=== PATIENT | female | born 1985 | race Two or more races ===

== ENCOUNTER 2023-08-14 11:09 | Emergency (ER) | payer OTHER ==
[~2023-08-14] VITALS: Ht 162.6 cm; Wt 81.2 kg
[2023-08-14 11:50] LABS: BASOPHILS % (AUTO) 0.9 % (0.0-2.0); EOSINOPHILS # (AUTO) 0.1 K/uL (0.0-0.7); EOSINOPHILS % (AUTO) 1.7 % (0.0-6.0); HEMATOCRIT 27 % (33-45); HEMOGLOBIN 8.1 g/dL (11.5-14.8); LYMPHOCYTES # (AUTO) 2.1 K/uL (0.8-4.8); LYMPHOCYTES % (AUTO) 46.6 % (20.0-44.0); MEAN CORPUSCULAR HEMOGLOBIN 21 PG (26.0-33.0); MEAN CORPUSCULAR HGB CONC 30 g/dl (31.0-36.0); MEAN CORPUSCULAR VOLUME 69 fL (82-100); MONOCYTES # (AUTO) 0.3 K/uL (0.1-1.30); MONOCYTES % (AUTO) 6.3 % (2.0-12.0); NEUTROPHILS % (AUTO) 44.5 % (43.0-81.0); PLATELET COUNT (AUTO) 280 K/uL (150-450); RED BLOOD CELL COUNT(AUTO) 3.89 MIL/uL (4.0-5.2); RED CELL DISTRIBUTION WIDTH 17.9 % (11.5-15.0); WHITE BLOOD COUNT (AUTO) 4.5 K/uL (4.3-11.0)
[2023-08-14 12:03] LABS: POTASSIUM 3.5 mmol/L (3.5-5.1)
[2023-08-14 12:12] LABS: CALCIUM, SERUM 5.5 mg/dL (8.5-10.1)
[2023-08-14] MEDS: Calcium Gluconate 1GM/10ML 4.65 MEQ in IV NS 0.9% 100 ML IV ONE ×2 (12:46→13:56)
[2023-08-14] MEDS ORDERED: HYDROCODONE/APAP 5/325MG TABLET ONE (13:09)
[2023-08-14] MEDS: HYDROCODONE/APAP 5/325MG TABLET PO ONE (13:10)
[2023-08-14] MEDS ORDERED: CHOL200026 PO (13:31)
[2023-08-14] MEDS ORDERED: CALC0.5C11 PO (13:31)
[2023-08-14] MEDS ORDERED: CALCIUM IV (13:31)
[2023-08-14] MEDS ORDERED: SERT50TA PO (13:31)
[2023-08-14] MEDS ORDERED: LEVOTHYROXINE SODIUM IV (13:31)
[2023-08-14] MEDS ORDERED: HYDROMORPHONE 1 MG/1 ML DISP.SYRIN ONE (13:48)
[2023-08-14] MEDS ORDERED: HYDR-3972 PO (13:53)
[2023-08-14] MEDS: HYDROMORPHONE MDV 0.5 MG in IV D5W 50 ML IV PRN (13:56)
[2023-08-14] MEDS ORDERED: Calcium Gluconate 0.465 MEQ/ML VIAL IV ONE (14:00)
[2023-08-14 15:01] VITALS: BP 128/99; TEMP 98.3; O2SAT 100
== END 2023-08-14 15:02 | disposition home or self-care (01) ==
LOC: ER 11:15
DX: E83.51 Hypocalcemia (principal); Z88.8 Allergy status to other drugs, medicaments and biological substances
CPT/HCPCS: 99285; 96365; 96366; 96368; 93005; 71045; 82310; 85025; 80048; 83735; 36415; J0610 ×2; J7030 ×2; A4223; J1170